=== PATIENT | female | born 1975 | race Caucasian/White ===

== ENCOUNTER 2017-02-13 15:39 | Emergency (ER) | payer MEDICAID ==
--- NOTE | 2017-02-13 17:10 | ER Document Report ---
ED Medical Screen (RME) - General Stated Complaint: RIGHT FLANK PAIN Time seen by provider: 17:05 Mode of Arrival: Ambulatory Information source: Patient Notes: [age]-year-old female has a dull headache that starts in the right posterior occiput for 3 days. Earlier today she developed right flank pain that radiated to her right upper quadrant and she also had episode of confusion, she picked up her toothbrush and didn't know what to put on it. That symptom has resolved and there is no weakness. No chest pain or shortness of breath. I have greeted and performed a rapid initial assessment of this patient. A comprehensive ED assessment, evaluation of the patient, analysis of test results , and completion of the medical decision making process will be conducted by additional ED providers. TRAVEL OUTSIDE OF THE U[place]S. IN LAST 30 DAYS: No - Related Data Allergies/Adverse Reactions: No Known Allergies Allergy (Verified 02/13/17 17:04) Past Medical History - Past Medical History Cardiac Medical History: Reports: Hx Hypercholesterolemia Neurological Medical History: Denies: Hx Seizures Psychiatric Medical History: Reports: Hx Anxiety, Hx Depression Past Surgical History: Reports: Hx Genitourinary Surgery - D&C x2, Hx Oral Surgery - bone grafts and extractions, Hx Tubal Ligation, Hx Umbilical Hernia. Denies: Hx Pacemaker - Immunizations Immunizations up to date: Yes Hx Diphtheria, Pertussis, Tetanus Vaccination: Yes Physical Exam - Vital signs Vitals: Temp Pulse Resp BP Pulse Ox 98.5 F 101 H 16 137/93 H 100 02/13/17 15:45 02/13/17 15:45 02/13/17 15:45 02/13/17 15:45 02/13/17 15:45 Course - Vital Signs Vital signs: Temp Pulse Resp BP Pulse Ox 98.5 F 101 H 16 137/93 H 100 02/13/17 15:45 02/13/17 15:45 02/13/17 15:45 02/13/17 15:45 02/13/17 15:45
[2017-02-13 17:37] LABS: ABSOLUTE BASOPHILS # (AUTO) 0.1 10^3/uL (0.0-0.2); ABSOLUTE EOSINOPHILS # (AUTO) 0.4 10^3/uL (0.0-0.6); ABSOLUTE LYMPHOCYTES (AUTO) 2.6 10^3/uL (0.5-4.7); ABSOLUTE MONOCYTES (AUTO) 0.7 10^3/uL (0.1-1.4); ABSOLUTE NEUT (AUTO) 6.7 10^3/uL (1.7-8.2); BASOPHILS % (AUTO) 0.5 % (0-2); EOSINOPHILS % (AUTO) 4.3 % (0-6); HEMOGLOBIN 15.2 g/dL (12.0-15.5); HGB HCT DIFFERENCE 1.6; LYMPHOCYTES % (AUTO) 24.5 % (13-45); MEAN CORPUSCULAR HEMOGLOBIN 32.2 pg (27.0-33.4); MEAN CORPUSCULAR HGB CONC 34.6 g/dL (32.0-36.0); MEAN CORPUSCULAR VOLUME 93 fl (80-97); MONOCYTES % (AUTO) 6.7 % (3-13); RED BLOOD COUNT 4.71 10^6/uL (3.72-5.28); RED CELL DISTRIBUTION WIDTH 12.8 % (11.5-14.0); WHITE BLOOD COUNT 10.4 10^3/uL (4.0-10.5)
[2017-02-13 17:43] LABS: APPEARANCE,URINE SLIGHTLY-CLOUDY; BILIRUBIN,URINE NEGATIVE (NEGATIVE); GLUCOSE, URINE NEGATIVE (NEGATIVE); KETONES,URINE NEGATIVE (NEGATIVE); LEUKOCYTE ESTERASE,URINE MODERATE (NEGATIVE); NITRITE,URINE NEGATIVE (NEGATIVE); PROTEIN,URINE NEGATIVE (NEGATIVE); URINE SPECIFIC GRAVITY 1.006; UROBILINOGEN,URINE NEGATIVE mg/dL (<2.0)
[2017-02-13 17:57] LABS: ALANINE AMINOTRANSFERASE 31 U/L (9-52); ALBUMIN 4.6 g/dL (3.5-5.0); ALKALINE PHOSPHATASE 90 U/L (38-126); ANION GAP 13 (5-19); ASPARTATE AMINO TRANSFERASE 21 U/L (14-36); BILIRUBIN,DIRECT 0.3 mg/dL (0.0-0.4); BILIRUBIN,TOTAL 0.6 mg/dL (0.2-1.3); BLOOD UREA NITROGEN 8 mg/dL (7-20); CALCIUM 10.1 mg/dL (8.4-10.2); CARBON DIOXIDE 24 mmol/L (22-30); CHLORIDE 105 mmol/L (98-107); CREATININE RESULT 0.83 mg/dL (0.52-1.25); GLUCOSE 92 mg/dL (75-110); POTASSIUM 4.6 mmol/L (3.6-5.0); SODIUM 142.2 mmol/L (137-145); TOTAL PROTEIN 7.8 g/dL (6.3-8.2)
[2017-02-13] MEDS ORDERED: CEPHALEXIN 500 MG CAPSULE PO ONE (18:49)
[2017-02-13] MEDS ORDERED: KETOROLAC TROMETHAMINE 60 MG/2 ML SDV IM ONE (18:50)
--- NOTE | 2017-02-13 18:50 | ER Document Report ---
ED GI/ - General Mode of Arrival: Ambulatory Information source: Patient TRAVEL OUTSIDE OF THE U.S. IN LAST 30 DAYS: No - HPI Patient complains to provider of: Flank pain Associated symptoms: Other - See above <LESLEY MAURICIO - Last Filed: 02/14/17 00:35> <JOSH ARBOLEDA - Last Filed: 02/14/17 02:50> - General Chief Complaint: Flank Pain Stated Complaint: RIGHT FLANK PAIN Notes: Patient is a 41 year old female who presents to the emergency department complaining of right sided flank pain onset last night. Patient reports the pain radiates into her lower right abdomen and has been constant. Patient denies dysuria, lightheadedness, nausea, fever, and the pain being exacerbated by movement. Patient also complains of a period of confusion this afternoon when she couldn't complete her normal daily routine, this has since resolved. Patient states that she has chronic diarrhea for the past 7 years and was only just recently prescribed medication for it. Patient currently takes a muscle relaxant for post knee surgery but states that she has not been taking it regularly. PCP: PHAN (LESLEY MAURICIO) - Related Data Allergies/Adverse Reactions: No Known Allergies Allergy (Verified 02/13/17 17:04) Past Medical History - General Information source: Patient - Social History Smoking Status: Current Every Day Smoker Chew tobacco use (# tins/day): No Frequency of alcohol use: None Drug Abuse: None Family History: Reviewed & Not Pertinent, Malignancy - Breast cancer Patient has suicidal ideation: No Patient has homicidal ideation: No - Past Medical History Cardiac Medical History: Reports: Hx Hypercholesterolemia Psychiatric Medical History: Reports: Hx Anxiety, Hx Depression Past Surgical History: Reports: Hx Genitourinary Surgery - D&C x2, Hx Oral Surgery - bone grafts and extractions, Hx Orthopedic Surgery - Knee, Hx Tubal Ligation, Hx Umbilical Hernia - Immunizations Immunizations up to date: Yes Hx Diphtheria, Pertussis, Tetanus Vaccination: Yes <LESLEY MAURICIO - Last Filed: 02/14/17 00:35> Review of Systems - Review of Systems Constitutional: denies: Fever EENT: No symptoms reported Cardiovascular: denies: Lightheaded Respiratory: No symptoms reported Gastrointestinal: See HPI, Abdominal pain. denies: Nausea Genitourinary: See HPI, Flank pain. denies: Dysuria Female Genitourinary: No symptoms reported Musculoskeletal: No symptoms reported Skin: No symptoms reported Hematologic/Lymphatic: No symptoms reported Neurological/Psychological: No symptoms reported -: Yes All other systems reviewed and negative <LESLEY MAURICIO - Last Filed: 02/14/17 00:35> Physical Exam - Vital signs Interpretation: Normal - General General appearance: Appears well, Alert - HEENT Head: Normocephalic, Atraumatic - Respiratory Respiratory status: No respiratory distress Chest status: Nontender Breath sounds: Normal Chest palpation: Normal - Cardiovascular Rhythm: Regular Heart sounds: Normal auscultation Murmur: No - Back Back: Other - Right flank tender to palpation - Extremities General upper extremity: Normal inspection, Normal ROM, Normal strength General lower extremity: Normal inspection, Normal ROM, Normal strength, Normal weight bearing - Neurological Neuro grossly intact: Yes Cognition: Normal Orientation: AAOx4 [place] Coma Scale Eye Opening: Spontaneous [place] Coma Scale Verbal: Oriented [place] Coma Scale Motor: Obeys Commands [place] Coma Scale Total: 15 Speech: Normal Motor strength normal: LUE, RUE, LLE, RLE - Psychological Associated symptoms: Normal affect, Normal mood - Skin Skin Temperature: Warm Skin Moisture: Dry Skin Color: Normal <LESLEY MAURICIO - Last Filed: 02/14/17 00:35> Course - Laboratory Result Diagrams: 02/13/17 17:15 02/13/17 17:15 <LESLEY MAURICIO - Last Filed: 02/14/17 00:35> - Laboratory Result Diagrams: 02/13/17 17:15 02/13/17 17:15 <JOSH ARBOLEDA - Last Filed: 02/14/17 02:50> - Re-evaluation Re-evalutation: 02/13 Patient with flank pain. No evidence for stone. Pain is at times worse with movement. Patient does have wbc's and urine. Will be treated for UTI. Patient also be given medication for pain and sleep as she has been on her times sleeping lately. She is to follow-up with her doctor to [place]. Return if any worsening or concerning symptoms. Urine culture sent. Understands and agrees with plan. Able to take by mouth. Stable for discharge. (JOSH ARBOLEDA) - Vital Signs Vital signs: Temp Pulse Resp BP Pulse Ox 98.1 F 91 16 119/85 99 02/13/17 19:19 02/13/17 19:19 02/13/17 19:19 02/13/17 19:19 02/13/17 19:19 - Laboratory Laboratory results interpreted by me: 02/13/17 17:20 Urine Blood SMALL H Ur Leukocyte Esterase MODERATE H Discharge <LESLEY MAURICIO - Last Filed: 02/14/17 00:35> <JOSH ARBOLEDA - Last Filed: 02/14/17 02:50> - Discharge Clinical Impression: Pyelonephritis UTI (urinary tract infection) Qualifiers: Urinary tract infection type: site unspecified Hematuria presence: with hematuria Qualified Code(s): N39.0 - Urinary tract infection, site not specified ; R31.9 - Hematuria, unspecified Condition: Stable Disposition: HOME, SELF-CARE Instructions: Urinary Tract Infection ([facility]), Pyelonephritis ([facility]) Prescriptions: Diazepam [Valium 2 mg Tablet] 1 - 2 mg PO QHS #10 tablet Cephalexin Monohydrate [Keflex 500 mg Capsule] 500 mg PO QID #40 capsule Forms: Elevated Blood Pressure, Return to Work Scribe Attestation: 02/14/17 02:50 I personally performed the services described in the documentation, reviewed and edited the documentation which was dictated to the scribe in my presence, and it accurately records my words and actions. (JOSH ARBOLEDA) Scribe Documentation - Scribe Written by Scribe:: aakash Bishop, 02/13/172027 acting as scribe for :: Dayanna <LESLEY MAURICIO - Last Filed: 02/14/17 00:35>
[2017-02-13 19:22] VITALS: BP 119/85
== END 2017-02-13 19:30 | disposition home or self-care (01) ==
LOC: ER 15:39
DX: N12 Tubulo-interstitial nephritis, not specified as acute or chronic (principal); R31.9 Hematuria, unspecified; R10.9 Unspecified abdominal pain; R41.0 Disorientation, unspecified; R19.7 Diarrhea, unspecified; F17.200 Nicotine dependence, unspecified, uncomplicated; Z98.890 Other specified postprocedural states
CPT/HCPCS: 94640; 96372; 36415; 87086; 84703; 85025; 87088; 80053; 81001; 87186; 70450; J1885

== ENCOUNTER 2017-08-25 16:17 | Emergency (ER) | payer MEDICAID ==
[2017-08-25 16:25] VITALS: BP 163/90
[2017-08-25 17:27] LABS: APPEARANCE,URINE CLEAR; BILIRUBIN,URINE NEGATIVE (NEGATIVE); GLUCOSE, URINE NEGATIVE (NEGATIVE); KETONES,URINE NEGATIVE (NEGATIVE); LEUKOCYTE ESTERASE,URINE NEGATIVE (NEGATIVE); NITRITE,URINE NEGATIVE (NEGATIVE); PROTEIN,URINE NEGATIVE (NEGATIVE); URINE SPECIFIC GRAVITY 1.018; UROBILINOGEN,URINE NEGATIVE mg/dL (<2.0)
--- NOTE | 2017-08-25 17:36 | RADIOLOGY REPORT (SQ) ---
EXAM DESCRIPTION: CT LTD RENAL STONE PROTOCOL ON COMPLETED DATE/TIME: 08/25/2017 5:07 pm REASON FOR STUDY: left flank pain COMPARISON: 08/03/2015 TECHNIQUE: CT scan of the abdomen and pelvis performed without intravenous or oral contrast. Images reviewed with lung, soft tissue, and bone windows. Reconstructed coronal and sagittal MPR images revi ewed. All images stored on PACS. All CT scanners at this facility use dose modulation, iterative reconstruction, and/or weight based d osing when appropriate to reduce radiation dose to as low as reasonably achievable (ALARA). [facility]: Dose Right [facility]: CareDose [facility]: Dose Right [facility]: Teradose 4D [facility]: Smart WeTOWNS RADIATION DOSE: Up-to-date CT equipment and radiation dose reduction techniques were employed. CTDIv ol: 8.2 mGy. DLP: 413 mGy-cm.mGy. LIMITATIONS: None. FINDINGS: LOWER CHEST: No significant findings. No nodules or infiltrates. NON-CONTRASTED LIVER, SPLEEN, ADRENALS: Evaluation limited by lack of IV contrast. No identified sign ificant masses. PANCREAS: No masses. No peripancreatic inflammatory changes. GALLBLADDER: No identified stones by CT criteria. No inflammatory changes to suggest cholecystitis. RIGHT KIDNEY AND URETER: No suspicious masses. Assessment limited by lack of IV contrast. No signif icant calcifications. No hydronephrosis or hydroureter. LEFT KIDNEY AND URETER: No suspicious masses. Assessment limited by lack of IV contrast. No signifi cant calcifications. No hydronephrosis or hydroureter. AORTA AND RETROPERITONEUM: No aneurysm. No retroperitoneal masses or adenopathy. BOWEL AND PERITONEAL CAVITY: No obvious masses or inflammatory changes. No free fluid. APPENDIX: Normal. PELVIS, BLADDER, AND ABDOMINAL WALL:Urinary bladder is normal. Uterus is normal for age. There may be a 2 cm right ovarian cyst. BONES: No significant findings. OTHER: No other significant finding. IMPRESSION: 1. There is no urinary pathology. 2. There appears to be a 2 cm right ovarian cyst. COMMENT: Quality ID # [id number]: Final reports with documentation of one or more dose reduction techniques (e.g., Automated exposure control, adjustment of the mA and/or kV according to patient size, use of iterative reconstruction technique) TECHNICAL DOCUMENTATION: JOB ID: [id number] All Rights Reserved
--- NOTE | 2017-08-25 18:22 | ER Document Report ---
ED General - General Chief Complaint: Flank Pain Stated Complaint: LEFT SIDE PAIN Time Seen by Provider: 08/25/17 16:45 Mode of Arrival: Ambulatory Information source: Patient Notes: This is a 41-year-old female with no prior medical problems who presents to the emergency room with 4 day history of left flank pain and back. Patient denies dysuria. Patient denies any fever, chills, nausea vomiting. Patient denies any abdominal pain per se. Patient denies any vaginal discharge. She does have a history of an umbilical hernia repair and a bilateral tubal ligation. She smokes 1-2 packs of cigarettes a day. She is currently on no medicines. [facility] is followed [facility] the [facility]. TRAVEL OUTSIDE OF THE [place] IN LAST 30 DAYS: No COUNTRY TRAVELED TO/FROM: [facility] Onset: Last week Onset/Duration: Gradual Quality of pain: Dull Severity: Moderate Pain Level: 2 Associated symptoms: denies: Chills, Fever, Shortness of breath Exacerbated by: Movement Relieved by: Denies Similar symptoms previously: Yes Recently seen / treated by doctor: No - Related Data Allergies/Adverse Reactions: No Known Allergies Allergy (Verified 08/25/17 16:22) Past Medical History - General Information source: Patient - Social History Smoking Status: Current Every Day Smoker Cigarette use (# per day): Yes - 1 pack per day Chew tobacco use (# tins/day): No Frequency of alcohol use: None Drug Abuse: None Lives with: Family Family History: Reviewed & Not Pertinent, Malignancy - Breast cancer Patient has suicidal ideation: No - Past Medical History Cardiac Medical History: Reports: Hx Hypercholesterolemia Neurological Medical History: Denies: Hx Seizures Renal/ Medical History: Denies: Hx Peritoneal Dialysis Psychiatric Medical History: Reports: Hx Anxiety, Hx Depression Past Surgical History: Reports: Hx Genitourinary Surgery - D&C x2, Hx Oral Surgery - bone grafts and extractions, Hx Orthopedic Surgery - Knee, Hx Tubal Ligation, Hx Umbilical Hernia. Denies: Hx Pacemaker - Immunizations Immunizations up to date: Yes Hx Diphtheria, Pertussis, Tetanus Vaccination: Yes Review of Systems - Review of Systems Constitutional: denies: Chills, Fever EENT: No symptoms reported Cardiovascular: No symptoms reported Respiratory: No symptoms reported Gastrointestinal: No symptoms reported Genitourinary: No symptoms reported Female Genitourinary: No symptoms reported Musculoskeletal: See HPI Skin: No symptoms reported Hematologic/Lymphatic: No symptoms reported Neurological/Psychological: No symptoms reported Physical Exam - Vital signs Vitals: Temp Pulse Resp BP Pulse Ox 98.7 F 91 16 163/90 H 98 08/25/17 16:23 08/25/17 16:23 08/25/17 16:23 08/25/17 16:23 08/25/17 16:23 Notes: Physical exam: GENERAL: 41-year-old female, alert and oriented 3, no acute distress. Patient is afebrile. She appears good. HEAD: Atraumatic, normocephalic. EYES: Pupils equal round and reactive to light, extraocular movements intact, sclera anicteric, conjunctiva are normal. ENT: TMs normal, nares patent, oropharynx clear without exudates. Moist mucous membranes. NECK: Normal range of motion, supple without obvious mass or JVD. LUNGS: Breath sounds clear to auscultation bilaterally and equal. No wheezes rales or rhonchi. HEART: Regular rate and rhythm without murmurs, rubs or gallops. Back: Patient does have right paraspinal back pain. There is mild CVA tenderness. There is no swelling or skin changes. ABDOMEN: Soft, normoactive bowel sounds. No tenderness to palpation. No guarding, no rebound. No masses appreciated. EXTREMITIES: Normal range of motion, no pitting or edema. No clubbing or cyanosis. NEUROLOGICAL: Cranial nerves II through XII grossly intact. Normal speech, moving all extremities. PSYCH: Normal mood, normal affect. SKIN: Warm, Dry, normal turgor, no rashes or lesions noted. Course - Re-evaluation Re-evalutation: 08/25/17 18:24 Note: The patient's been ambulating around the ER and looks fine. Her vital signs are stable. Her blood pressure was rechecked and it was 130/85. I have advised her to follow-up with her primary care doctor as far as her blood pressure. I have given her a copy of the CT report and urine analysis to [facility]. I have told her to call and schedule next available appointment. - Vital Signs Vital signs: Temp Pulse Resp BP Pulse Ox 98.7 F 91 16 163/90 H 98 08/25/17 16:23 08/25/17 16:23 08/25/17 16:23 08/25/17 16:23 08/25/17 16:23 - Laboratory Laboratory results interpreted by me: 08/25/17 16:50 Urine Blood SMALL H - Diagnostic Test Radiology reviewed: Image reviewed, Reports reviewed - CT of the abdomen shows no acute intra-abdominal process Discharge - Discharge Clinical Impression: Back pain, Pre-hypertension Condition: Stable Disposition: HOME, SELF-CARE Additional Instructions: The CT of the abdomen showed normal kidneys without any evidence of kidney stones or kidney blockage. Urine test showed no obvious infection. We did send a urine culture which will take 2 days to come back. Thank you for choosing [facility] for your care. The examination and treatment you have received in the Emergency Department today has been rendered on an emergency basis only and is not intended to be a substitute for complete medical care. You should contact your follow-up physician as it is important that he or she examine you for any new or remaining problems. If given a copy of any lab tests or radiology reports, please bring them with you when you see your physician. If your problem worsens or new symptoms appear and you are unable to arrange prompt follow-up care, return to the Emergency Department. Specific signs to look out for: Worsening pain, fever, or any concerns or getting worse. Any other instructions: I would like you to follow-up with your doctor at the [facility]: Bring a copy of today' s urine test and CT report with you. Call the clinic tomorrow for the next available appointment. Make sure you tell them you your blood pressure was a little elevated in the ER today and he should have a repeat check. Take nausea medicine as needed. Take ibuprofen for pain. Take oxycodone for pain unrelieved by the ibuprofen. You can also take some Tylenol every 4-6 hours. The pain medicine you're taking prescribed as a narcotic. There are several important things you should know about this medicine: 1. Taking narcotics for too long can lead to physical and mental dependence. Take this medicine only if really needed and in the lowest quantity to achieve pain relief. 2. Do not drink alcohol while on this medicine. Alcohol interacts with narcotics and the combination can be dangerous. 3. Do not drive or operate machinery while on this medicine. 4. Narcotics do cause constipation, so drink plenty of fluids and daily stool softeners. Prescriptions: Oxycodone HCl 5 mg PO Q6HP PRN #20 tablet PRN Reason: Forms: Elevated Blood Pressure
== END 2017-08-25 18:58 | disposition home or self-care (01) ==
LOC: ER 16:17
DX: R10.9 Unspecified abdominal pain (principal); M54.9 Dorsalgia, unspecified; R03.0 Elevated blood-pressure reading, without diagnosis of hypertension; F17.210 Nicotine dependence, cigarettes, uncomplicated; E78.00 Pure hypercholesterolemia, unspecified; Z98.51 Tubal ligation status
CPT/HCPCS: 76380; 81001; 99284

== ENCOUNTER 2017-12-22 05:02 | Emergency (ER) | payer MEDICAID ==
--- NOTE | 2017-12-22 06:37 | ER Document Report ---
ED General - General Chief Complaint: Toothache Stated Complaint: TOOTHACHE Time Seen by Provider: 12/22/17 06:33 Notes: 42-year-old female presents with 4 days of left lower tooth pain and swelling. She cannot chew on that side either. She denies fever but has been having chills. History of dental infections. She is currently taking clindamycin which she had left over from a prior dental infection. She has not visited the dentist. Denies odynophagia neck pain or difficulty moving her neck. TRAVEL OUTSIDE OF THE [place] IN LAST 30 DAYS: No COUNTRY TRAVELED TO/FROM: [place] - Related Data Allergies/Adverse Reactions: No Known Allergies Allergy (Verified 12/22/17 05:03) Past Medical History - Social History Smoking Status: Smoker,Current Status Unk Family History: Reviewed & Not Pertinent, Malignancy - Breast cancer - Past Medical History Cardiac Medical History: Reports: Hx Hypercholesterolemia Neurological Medical History: Denies: Hx Seizures Renal/ Medical History: Denies: Hx Peritoneal Dialysis Psychiatric Medical History: Reports: Hx Anxiety, Hx Depression Past Surgical History: Reports: Hx Genitourinary Surgery - D&C x2, Hx Oral Surgery - bone grafts and extractions, Hx Orthopedic Surgery - Knee, Hx Tubal Ligation, Hx Umbilical Hernia. Denies: Hx Pacemaker - Immunizations Immunizations up to date: Yes Hx Diphtheria, Pertussis, Tetanus Vaccination: Yes Review of Systems - Review of Systems Notes: REVIEW OF SYSTEMS GEN: Denies fever, chills, weight loss ENT: Mouth pain. Denies sore throat, nasal discharge, ear pain EYES: Denies blurry vision, eye pain, discharge CV: Denies chest pain, palpitations, edema RESP: Denies cough, shortness of breath, wheezing GI: Denies abdominal pain, nausea, vomiting, diarrhea MSK: Denies joint pain/swelling, edema, SKIN: Denies rash, skin lesions LYMPH: Denies swollen glands/lymph nodes NEURO: Denies headache, focal weakness or numbness, dizziness PSYCH: Denies depression, suicidal or homicidal ideation PHYSICAL EXAMINATION General: No acute distress, well-nourished Head: Atraumatic, normocephalic ENT: Poor dentition. Absent left lower second premolar. Tenderness to the left first molar on the mandible. No mandibular tenderness. Very mild swelling but no drainable abscess intraorally. Floor the mouth soft. No trismus., oropharynx moist, no exudates or tonsillar enlargement Eyes: Conjunctiva normal, pupils equal, lids normal Neck: No JVD, supple, no guarding CVS: Normal rate, regular rhythm, no murmurs Resp: No resp distress, equal and normal breath sounds bilaterally GI: Nondistended, soft, no tenderness to palpation, no rebound or guarding Ext: No deformities, no edema, normal range of motion in upper and lower ext Back: No CVA or midline TTP Skin: No rash, warm Lymphatic: No lymphadeopathy noted Neuro: Awake, alert. Face symmetric. GCS 15. Physical Exam - Vital signs Vitals: Temp Pulse Resp BP Pulse Ox 99.0 F 90 16 135/92 H 97 12/22/17 05:06 12/22/17 05:06 12/22/17 05:06 12/22/17 05:06 12/22/17 05:06 Course - Re-evaluation Re-evalutation: 12/22/17 06:37 Early dental infection without drainable abscess, no signs of deep space infection such as Yehuda or neck infection. We will change to penicillin add Page and stressed that the patient needs this tooth pulled. Given return precautions. I have discussed with the patient there likely diagnosis, aftercare plan, follow -up plans and my usual and customary return precautions. They verbalized understanding of this. - Vital Signs Vital signs: Temp Pulse Resp BP Pulse Ox 99.0 F 90 16 135/92 H 97 12/22/17 05:06 12/22/17 05:06 12/22/17 05:06 12/22/17 05:06 12/22/17 05:06 Discharge - Discharge Clinical Impression: Dental infection Condition: Good Disposition: HOME, SELF-CARE Instructions: [facility], Oral Narcotic Medication ([facility]), Penicillin V K ([facility]), Toothache ([facility]) Prescriptions: Hydrocodone/Acetaminophen [Page 5-325 mg Tablet] 1 tab PO Q6HP PRN #13 tablet PRN Reason: Penicillin V Potassium [Penicillin Vk 500 mg Tablet] 500 mg PO BID #20 tablet Referrals: [facility] [Provider Group] - Follow up as needed
[2017-12-22 06:45] VITALS: BP 138/96
== END 2017-12-22 06:46 | disposition home or self-care (01) ==
LOC: ER 05:02
DX: K04.7 Periapical abscess without sinus (principal); K08.89 Other specified disorders of teeth and supporting structures; R68.83 Chills (without fever)
CPT/HCPCS: 99282

== ENCOUNTER 2018-03-31 09:34 | Day surgery (SDC) | payer MEDICAID ==
[~2018-03-31 09:34] MED LIST: DIPHENHYDRAMINE HCL 50 MG/ML VIAL ONE; EPINEPHRINE INJ 1 MG/10 ML DISP.SYRIN ONE; FLUMAZENIL INJ 0.5 MG/5 ML VIAL ONE; GLUCAGON,HUMAN RECOMB 1 MG INJ ONE; NALOXONE HCL INJ/PF 0.4 MG/1 ML SDV ONE; ONDANSETRON HCL INJ/PF 4 MG/2 ML SDV ONE
[2018-03-31] MEDS: MIDAZOLAM 2 MG/2 ML INJ ONE ×2 (09:52→09:58)
[2018-03-31] MEDS: FENTANYL CITRATE INJ/PF 100 MCG/2 ML AMPUL ONE ×2 (09:54→09:56)
--- NOTE | 2018-03-31 10:13 | Operative Report ---
Operative Report DATE OF SURGERY: 03/31/18 Operative Report: The risks benefits and alternatives of the procedure explained to the patient in detail and informed consent is obtained.A GIF Olympus video scope was inserted into the patient's mouth and hypopharynx, the esophagus is identified intubated and insufflated, the scope was then advanced through the esophagus stomach and duodenum, retroflexion maneuver is done, the esophagus stomach and first and second portions of the duodenum examined PREOPERATIVE DIAGNOSIS: Gluten intolerance,, possible celiac disease POSTOPERATIVE DIAGNOSIS: Duodenitis status post biopsy rule out celiac disease. Gastritis status post biopsy rule out Helicobacter pylori OPERATION: EGD with biopsy SURGEON: LAITH LYNNE ANESTHESIA: Moderate Sedation - 4 mg of Versed, 100 mcg of fentanyl. Conscious sedation monitoring time 30 minutes. TISSUE REMOVED OR ALTERED: As noted above. COMPLICATIONS: None. ESTIMATED BLOOD LOSS: None. INTRAOPERATIVE FINDINGS: As noted above. PROCEDURE: Patient tolerated the procedure well. No immediate postprocedure complications are noted. Patient discharged in good condition. Discharge date 03/31/2018. Discharge diet: Regular. Discharge activity: Regular. 2-3 week follow-up to discuss findings. Patient is instructed to call the office or proceed to the emergency room should there be any further problems or questions. We will wait on pathology.
[2018-03-31 11:06] VITALS: BP 109/77
== END 2018-03-31 11:10 | disposition home or self-care (01) ==
LOC: END 09:34
PROVIDERS: ATTEND Internal Medicine Gastroenterology
DX: K29.80 Duodenitis without bleeding (principal); K29.50 Unspecified chronic gastritis without bleeding; K90.41 Non-celiac gluten sensitivity; F17.210 Nicotine dependence, cigarettes, uncomplicated; E78.5 Hyperlipidemia, unspecified; R73.03 Prediabetes; Z79.899 Other long term (current) drug therapy; Z79.84 Long term (current) use of oral hypoglycemic drugs
CPT/HCPCS: 43239; 88305 ×2; J2250; J3010; J0171; J1200; J1610; J2310; J2405; J3490

== ENCOUNTER 2019-09-02 22:25 | Emergency (ER) | payer MEDICAID ==
--- NOTE | 2019-09-02 22:58 | ER Document Report ---
ED Medical Screen (RME) - General Chief Complaint: Rash Stated Complaint: RASH/VAGINA AND BUTTOCKS Time Seen by Provider: 09/02/19 22:51 Mode of Arrival: Ambulatory Information source: Patient Notes: This 43-year-old female presents emergency department with vaginal bumps that started yesterday. Reports her vaginal area feels swollen and the bumps go up to her buttocks. Also reports when urine touches her skin it martinez. Denies history of STD. Denies history of herpes. Reports she is sexually active with one partner they do not use condoms. Denies fever vomiting diarrhea. I have greeted and performed a rapid initial assessment of this patient. A comprehensive ED assessment and evaluation of the patient, analysis of test results and completion of the medical decision making process will be conducted by additional ED providers. Dictation of this chart was performed using voice recognition software; therefore, there may be some unintended grammatical errors. TRAVEL OUTSIDE OF THE [place] IN LAST 30 DAYS: No COUNTRY TRAVELED TO/FROM: [place] - Related Data Allergies/Adverse Reactions: No Known Allergies Allergy (Verified 03/31/18 09:39) Past Medical History - Past Medical History Cardiac Medical History: Reports: Hx Coronary Artery Disease, Hx Hypercholesterolemia Denies: Hx Heart Attack, Hx Hypertension Pulmonary Medical History: Denies: Hx Asthma, Hx Bronchitis, Hx COPD, Hx Pneumonia Neurological Medical History: Denies: Hx Cerebrovascular Accident, Hx Seizures Renal/ Medical History: Denies: Hx Peritoneal Dialysis Musculoskeltal Medical History: Reports Hx Arthritis Psychiatric Medical History: Reports: Hx Anxiety, Hx Depression Past Surgical History: Reports: Hx Genitourinary Surgery - D&C x2, Hx Oral Surgery - bone grafts and extractions, Hx Orthopedic Surgery - Knee, Hx Tubal Ligation, Hx Umbilical Hernia. Denies: Hx Hysterectomy, Hx Pacemaker - Immunizations Immunizations up to date: Yes Hx Diphtheria, Pertussis, Tetanus Vaccination: Yes Physical Exam - Vital signs Vitals: Temp Pulse Resp BP Pulse Ox 98.6 F 110 H 18 135/87 H 99 09/02/19 22:45 09/02/19 22:45 09/02/19 22:45 09/02/19 22:45 09/02/19 22:45 Course - Vital Signs Vital signs: Temp Pulse Resp BP Pulse Ox 98.6 F 110 H 18 135/87 H 99 09/02/19 22:45 09/02/19 22:45 09/02/19 22:45 09/02/19 22:45 09/02/19 22:45
[2019-09-02 23:51] LABS: APPEARANCE,URINE SLIGHTLY-CLOUDY; BILIRUBIN,URINE NEGATIVE (NEGATIVE); COLOR,URINE YELLOW; GLUCOSE, URINE NEGATIVE (NEGATIVE); KETONES,URINE NEGATIVE (NEGATIVE); LEUKOCYTE ESTERASE,URINE MODERATE (NEGATIVE); NITRITE,URINE NEGATIVE (NEGATIVE); PROTEIN,URINE NEGATIVE (NEGATIVE); UROBILINOGEN,URINE NEGATIVE mg/dL (<2.0)
[2019-09-03 01:18] LABS: CHLAM PCR NOT DETECTED (NOT DETECT)
--- NOTE | 2019-09-03 01:38 | ER Document Report ---
ED GI/ - General Chief Complaint: Vaginal Pain Stated Complaint: RASH/VAGINA AND BUTTOCKS Time Seen by Provider: 09/02/19 22:51 Primary Care Provider: [facility] [Provider Group] - Follow up as needed Mode of Arrival: Ambulatory Notes: Patient is a 43 year old female that comes emergency department for chief complaint of 2 days of worsening discomfort in the pelvic/vaginal area, she states she feels like her genitals are swollen, she also has pain extending up the perineum and towards the rectum. She denies any obvious bleeding or discharge. She denies nausea vomiting, fever or chills, or history of the same. She is sexually active with her fianc. Past medical history of hyperlipidemia. TRAVEL OUTSIDE OF THE [place] IN LAST 30 DAYS: No COUNTRY TRAVELED TO/FROM: [place] - Related Data Allergies/Adverse Reactions: No Known Allergies Allergy (Verified 03/31/18 09:39) Past Medical History - General Information source: Patient - Social History Smoking Status: Current Every Day Smoker Frequency of alcohol use: None Drug Abuse: None Lives with: Family Family History: Reviewed & Not Pertinent, Malignancy - Breast cancer Patient has suicidal ideation: No Patient has homicidal ideation: No - Past Medical History Cardiac Medical History: Reports: Hx Coronary Artery Disease, Hx Hypercholesterolemia Denies: Hx Heart Attack, Hx Hypertension Pulmonary Medical History: Denies: Hx Asthma, Hx Bronchitis, Hx COPD, Hx Pneumonia Neurological Medical History: Denies: Hx Cerebrovascular Accident, Hx Seizures Renal/ Medical History: Denies: Hx Peritoneal Dialysis Musculoskeletal Medical History: Reports Hx Arthritis Psychiatric Medical History: Reports: Hx Anxiety, Hx Depression Past Surgical History: Reports: Hx Genitourinary Surgery - D&C x2, Hx Oral Surgery - bone grafts and extractions, Hx Orthopedic Surgery - Knee, Hx Tubal Ligation, Hx Umbilical Hernia. Denies: Hx Hysterectomy, Hx Pacemaker - Immunizations Immunizations up to date: Yes Hx Diphtheria, Pertussis, Tetanus Vaccination: Yes Review of Systems - Review of Systems Constitutional: No symptoms reported EENT: No symptoms reported Cardiovascular: No symptoms reported Respiratory: No symptoms reported Gastrointestinal: No symptoms reported Genitourinary: See HPI Female Genitourinary: See HPI Musculoskeletal: No symptoms reported Skin: No symptoms reported Hematologic/Lymphatic: No symptoms reported Neurological/Psychological: No symptoms reported Physical Exam - Vital signs Vitals: Temp Pulse Resp BP Pulse Ox 98.6 F 110 H 18 135/87 H 99 09/02/19 22:45 09/02/19 22:45 09/02/19 22:45 09/02/19 22:45 09/02/19 22:45 - Notes Notes: GENERAL: Alert, interacts well. No acute distress. HEAD: Normocephalic, atraumatic. EYES: Pupils equal, round, and reactive to light. Extraocular movements intact. ENT: Oral mucosa moist, tongue midline. Oropharynx unremarkable. Airway patent. NECK: Full range of motion. Supple. Trachea midline. LUNGS: Clear to auscultation bilaterally, no wheezes, rales, or rhonchi. No respiratory distress. HEART: Regular rate and rhythm. No murmur ABDOMEN: Soft, non-tender. Non-distended. Bowel sounds present in all 4 quadrants. GENITOURINARY: External exam shows 2 areas which are consistent with folliculitis infection, there is some erythema over the inferior aspect of the groin as well, there are no severely tender areas, no evidence of fluctuance or induration, no vesicles or blisters. There is discolored discharge and tenderness on pelvic exam as well. No bleeding. Unremarkable exam otherwise. Exam performed with Nilesh RN at bedside. EXTREMITIES: Moves all 4 extremities spontaneously. No edema, normal radial and dorsalis pedis pulses bilaterally. No cyanosis. BACK: no cervical, thoracic, lumbar midline tenderness. No saddle anesthesia, normal distal neurovascular exam. Moves all extremities in full range of motion. NEUROLOGICAL: Alert and oriented x3. Normal speech. Cranial nerves II through XII grossly intact. PSYCH: Normal affect, normal mood. SKIN: Warm, dry, normal turgor. No rashes or lesions noted. Course - Re-evaluation Re-evalutation: Evaluation appears to show some folliculitis with some surrounding cellulitis but no induration or fluctuance. In addition to this there is some discolored discharge vaginally with tenderness on exam. No bleeding. Negative for gonorrhea and chlamydia, negative trichomonas. 2+ white blood cells. No fever. No abdominal tenderness. Patient well-appearing otherwise. Starting on doxycycline, given Rocephin, discussed expectations, follow-up, return precautions. Patient states understanding and agreement. - Vital Signs Vital signs: Temp Pulse Resp BP Pulse Ox 98.4 F 88 16 128/93 H 99 09/03/19 03:22 09/03/19 03:22 09/03/19 03:22 09/03/19 03:22 09/03/19 03:22 - Laboratory Laboratory results interpreted by me: 09/02/19 23:25 Urine Blood MODERATE H Ur Leukocyte Esterase MODERATE H Discharge - Discharge Clinical Impression: Pain in genitalia, Rash Disposition: HOME, SELF-CARE Additional Instructions: Your evaluation is consistent with folliculitis, cellulitis, pelvic infection. Take doxycycline as prescribed to completion. Symptoms should resolve with time. Follow-up with primary care. Return if you worsen including f ever/chills, nausea/vomiting, abdominal pain, spreading rash, or any other concerning or worsening symptoms. Prescriptions: Doxycycline Hyclate 100 mg PO BID #14 capsule Forms: Return to Work Referrals: [facility] [Provider Group] - Follow up as needed
[2019-09-03] MEDS ORDERED: ONDANSETRON 4 MG TAB.RAPDIS PO ONE (02:11)
[2019-09-03] MEDS ORDERED: OXYCODONE-ACETAMINOPHEN 5-325 MG TABLET PO ONE (02:11)
[2019-09-03 02:19] LABS: T.VAGINALIS (WET MOUNT) NO TRICHOMONAS SEEN
[2019-09-03 02:20] LABS: EPITHELIALS (WET MOUNT) 3+ EPITHELIALS SEEN; RBCS (WET MOUNT) FEW RBCS SEEN; WBCS (WET MOUNT) 2+ WBCS SEEN; YEAST (WET MOUNT) NO YEAST SEEN
[2019-09-03 03:23] VITALS: BP 128/93
[2019-09-03] MEDS ORDERED: LIDOCAINE 1% INJ-PF (10 MG/ML) 30 ML SDV INJ ONE (03:23)
[2019-09-03] MEDS ORDERED: DOXYCYCLINE HYCLATE 100 MG TABLET PO ONE (03:23)
[2019-09-03] MEDS ORDERED: CEFTRIAXONE INJ 250 MG VIAL IM ONE (03:23)
[2019-09-03] MEDS ORDERED: HYDROCODONE/ACETAMINOPHEN 5-325 MG (6 TAB/ER DISP) PO PRN (03:24)
== END 2019-09-03 03:32 | disposition home or self-care (01) ==
LOC: ER 22:25
DX: R10.2 Pelvic and perineal pain (principal); R21 Rash and other nonspecific skin eruption; N89.8 Other specified noninflammatory disorders of vagina; F17.200 Nicotine dependence, unspecified, uncomplicated; I25.10 Atherosclerotic heart disease of native coronary artery without angina pectoris
CPT/HCPCS: 99283; 96372; 87210; 81025; 81001; 87491; 87591; J3490 ×2; S0119; J0696

== ENCOUNTER 2019-10-15 10:38 | Emergency (ER) | payer MEDICAID ==
--- NOTE | 2019-10-15 10:47 | ER Document Report ---
ED Medical Screen (RME) - General Chief Complaint: Numbness Stated Complaint: FOOT NUMBNESS Time Seen by Provider: 10/15/19 10:43 Primary Care Provider: JOHANNE OLIVO MD [Primary Care Provider] - Follow up as needed TRAVEL OUTSIDE OF THE [place] IN LAST 30 DAYS: No COUNTRY TRAVELED TO/FROM: [facility] Notes: 10/15/19 10:43 Patient is a 43-year-old female with a history of IBS, PCOS (on metformin 4), headaches, high cholesterol who presents complaining of bilateral foot tingling/occasional numbness that radiates all way up to her hips bilaterally th at is been progressing over the past 3 weeks starting with her feet. Patient states that on occasion she also feels like she cannot feel herself when she is wiping after using the bathroom. Patient states that she has no pain anywhere including her back and no injury. No fever, chest pain, shortness of breath, muscle weakness, rash. I have treated and performed a rapid initial assessment of this patient. A comprehensive ED assessment and evaluation of the patient, analysis of test results and completion of medical decision making process will be conducted by additional ED providers. PHYSICAL EXAMINATION: GENERAL: Well-appearing, well-nourished and in no acute distress. A&Ox4. Answers questions appropriately. Back: FROM. Nontender. Ext's: no edema. pulses 2+ b/l to feet. Neuro: dec sensation b/l LE's. - Related Data Allergies/Adverse Reactions: No Known Allergies Allergy (Verified 03/31/18 09:39) Past Medical History - Past Medical History Cardiac Medical History: Reports: Hx Coronary Artery Disease, Hx Hypercholesterolemia Denies: Hx Heart Attack, Hx Hypertension Pulmonary Medical History: Denies: Hx Asthma, Hx Bronchitis, Hx COPD, Hx Pneumonia Neurological Medical History: Denies: Hx Cerebrovascular Accident, Hx Seizures Renal/ Medical History: Denies: Hx Peritoneal Dialysis Musculoskeltal Medical History: Reports Hx Arthritis Psychiatric Medical History: Reports: Hx Anxiety, Hx Depression Past Surgical History: Reports: Hx Genitourinary Surgery - D&C x2, Hx Oral Surgery - bone grafts and extractions, Hx Orthopedic Surgery - Knee, Hx Tubal Ligation, Hx Umbilical Hernia. Denies: Hx Hysterectomy, Hx Pacemaker - Immunizations Immunizations up to date: Yes Hx Diphtheria, Pertussis, Tetanus Vaccination: Yes Doctor's Discharge - Discharge Referrals: JOHANNE OLIVO MD [Primary Care Provider] - Follow up as needed
[2019-10-15 11:25] LABS: ABSOLUTE BASOPHILS # (AUTO) 0.1 10^3/uL (0.0-0.2); ABSOLUTE EOSINOPHILS # (AUTO) 0.5 10^3/uL (0.0-0.6); ABSOLUTE LYMPHOCYTES (AUTO) 2.5 10^3/uL (0.5-4.7); ABSOLUTE MONOCYTES (AUTO) 0.5 10^3/uL (0.1-1.4); HEMATOCRIT 42.3 % (36.0-47.0); HEMOGLOBIN 14.6 g/dL (12.0-15.5); LYMPHOCYTES % (AUTO) 32.6 % (13-45); MEAN CORPUSCULAR HEMOGLOBIN 32.7 pg (27.0-33.4); MEAN CORPUSCULAR HGB CONC 34.6 g/dL (32.0-36.0); MEAN CORPUSCULAR VOLUME 95 fl (80-97); MONOCYTES % (AUTO) 6.9 % (3-13); PLATELET COUNT 361 10^3/uL (150-450); RED BLOOD COUNT 4.46 10^6/uL (3.72-5.28); RED CELL DISTRIBUTION WIDTH 12.6 % (11.5-14.0); SEGMENTED NEUTROPHILS % (AUTO) 53.5 % (42-78); TOTAL CELLS COUNTED % (AUTO) 100 %; WHITE BLOOD COUNT 7.6 10^3/uL (4.0-10.5)
[2019-10-15 11:29] LABS: APPEARANCE,URINE CLEAR; BILIRUBIN,URINE NEGATIVE (NEGATIVE); COLOR,URINE YELLOW; GLUCOSE, URINE NEGATIVE (NEGATIVE); KETONES,URINE NEGATIVE (NEGATIVE); PROTEIN,URINE NEGATIVE (NEGATIVE); URINE SPECIFIC GRAVITY 1.009; UROBILINOGEN,URINE NEGATIVE mg/dL (<2.0)
[2019-10-15 11:59] LABS: ALBUMIN 4.4 g/dL (3.5-5.0); ALKALINE PHOSPHATASE 74 U/L (38-126); ANION GAP 7 (5-19); ASPARTATE AMINO TRANSFERASE 28 U/L (14-36); BILIRUBIN,DIRECT 0.2 mg/dL (0.0-0.4); BILIRUBIN,TOTAL 0.4 mg/dL (0.2-1.3); BLOOD UREA NITROGEN 10 mg/dL (7-20); CALCIUM 9.6 mg/dL (8.4-10.2); CARBON DIOXIDE 27 mmol/L (22-30); CHLORIDE 106 mmol/L (98-107); GLUCOSE 90 mg/dL (75-110); POTASSIUM 4.4 mmol/L (3.6-5.0); TOTAL PROTEIN 7.4 g/dL (6.3-8.2)
[2019-10-15 13:20] VITALS: BP 142/96
== END 2019-10-15 14:36 | disposition left against medical advice (07) ==
LOC: ER 10:38
DX: R20.0 Anesthesia of skin (principal); R20.2 Paresthesia of skin; I25.10 Atherosclerotic heart disease of native coronary artery without angina pectoris; E28.2 Polycystic ovarian syndrome; Z79.84 Long term (current) use of oral hypoglycemic drugs; Z53.20 Procedure and treatment not carried out because of patient's decision for unspecified reasons
CPT/HCPCS: 36415; 80053; 81001; 81025; 82962; 83735; 84443; 85025; 87086; 87088; 99281

== ENCOUNTER 2019-10-15 19:03 | Emergency (ER) | payer MEDICAID ==
--- NOTE | 2019-10-15 20:17 | ER Document Report ---
ED Medical Screen (RME) - General Chief Complaint: Numbness Stated Complaint: LOWER BACK PAIN Time Seen by Provider: 10/15/19 20:16 Primary Care Provider: TOD BERMAN MD [Primary Care Provider] - Follow up as needed TRAVEL OUTSIDE OF THE [place] IN LAST 30 DAYS: No COUNTRY TRAVELED TO/FROM: [facility] Notes: 10/15/19 20:16 Pt was triaged by myself earlier, but had to leave and has not returned. See previous note/labs. No changes since she left and returned. - Related Data Allergies/Adverse Reactions: No Known Allergies Allergy (Verified 10/15/19 10:45) Past Medical History - Past Medical History Cardiac Medical History: Reports: Hx Coronary Artery Disease, Hx Hypercholesterolemia Denies: Hx Heart Attack, Hx Hypertension Pulmonary Medical History: Denies: Hx Asthma, Hx Bronchitis, Hx COPD, Hx Pneumonia Neurological Medical History: Denies: Hx Cerebrovascular Accident, Hx Seizures Renal/ Medical History: Denies: Hx Peritoneal Dialysis Musculoskeltal Medical History: Reports Hx Arthritis Psychiatric Medical History: Reports: Hx Anxiety, Hx Depression Past Surgical History: Reports: Hx Genitourinary Surgery - D&C x2, Hx Oral Surgery - bone grafts and extractions, Hx Orthopedic Surgery - Knee, Hx Tubal Ligation, Hx Umbilical Hernia. Denies: Hx Hysterectomy, Hx Pacemaker - Immunizations Immunizations up to date: Yes Hx Diphtheria, Pertussis, Tetanus Vaccination: Yes Physical Exam - Vital signs Vitals: Temp Pulse Resp BP Pulse Ox 98.5 F 96 16 134/91 H 100 10/15/19 19:24 10/15/19 19:24 10/15/19 19:24 10/15/19 19:24 10/15/19 19:24 Course - Vital Signs Vital signs: Temp Pulse Resp BP Pulse Ox 98.5 F 96 16 134/91 H 100 10/15/19 19:24 10/15/19 19:24 10/15/19 19:24 10/15/19 19:24 10/15/19 19:24 Doctor's Discharge - Discharge Referrals: TOD BERMAN MD [Primary Care Provider] - Follow up as needed
--- NOTE | 2019-10-15 22:55 | ER Document Report ---
ED General - General Chief Complaint: Numbness Stated Complaint: LOWER BACK PAIN Time Seen by Provider: 10/15/19 20:16 Primary Care Provider: TOD BERMAN MD [Primary Care Provider] - Follow up as needed Notes: Patient is a 43-year-old female that comes emergency department for chief complaint of numbness from her feet up to her buttocks. She states that she has noticed this over the past 3 weeks, it is on both sides, she states it started being noticeable first in her feet and then has progressed up her legs towards her buttock and "private area". She is able to urinate without difficulty, she denies bowel incontinence, she denies injury, fever, IV drug abuse. She states she was seen by her primary care and sent over here. She denies any other complaints at this time. Past medical history of IBS, PCOS on metformin, hyperlipidemia. TRAVEL OUTSIDE OF THE [place] IN LAST 30 DAYS: No COUNTRY TRAVELED TO/FROM: [place] - Related Data Allergies/Adverse Reactions: No Known Allergies Allergy (Verified 10/15/19 10:45) Past Medical History - General Information source: Patient - Social History Smoking Status: Never Smoker Frequency of alcohol use: None Drug Abuse: None Lives with: Family Family History: Reviewed & Not Pertinent, Malignancy - Breast cancer Patient has suicidal ideation: No Patient has homicidal ideation: No - Past Medical History Cardiac Medical History: Reports: Hx Hypercholesterolemia Denies: Hx Heart Attack, Hx Hypertension Pulmonary Medical History: Denies: Hx Asthma, Hx Bronchitis, Hx COPD, Hx Pneumonia Neurological Medical History: Denies: Hx Cerebrovascular Accident, Hx Seizures Renal/ Medical History: Denies: Hx Peritoneal Dialysis Musculoskeletal Medical History: Reports Hx Arthritis Psychiatric Medical History: Reports: Hx Anxiety, Hx Depression Past Surgical History: Reports: Hx Genitourinary Surgery - D&C x2, Hx Oral Surgery - bone grafts and extractions, Hx Orthopedic Surgery - Knee, Hx Tubal Ligation, Hx Umbilical Hernia. Denies: Hx Hysterectomy, Hx Pacemaker - Immunizations Immunizations up to date: Yes Hx Diphtheria, Pertussis, Tetanus Vaccination: Yes Review of Systems - Review of Systems Constitutional: No symptoms reported EENT: No symptoms reported Cardiovascular: No symptoms reported Respiratory: No symptoms reported Gastrointestinal: No symptoms reported Genitourinary: No symptoms reported Female Genitourinary: No symptoms reported Musculoskeletal: See HPI Skin: No symptoms reported Hematologic/Lymphatic: No symptoms reported Neurological/Psychological: See HPI Physical Exam - Vital signs Vitals: Temp Pulse Resp BP Pulse Ox 98.5 F 96 16 134/91 H 100 10/15/19 19:24 10/15/19 19:24 10/15/19 19:24 10/15/19 19:24 10/15/19 19:24 - Notes Notes: GENERAL: Alert, interacts well. No acute distress. HEAD: Normocephalic, atraumatic. EYES: Pupils equal, round, and reactive to light. Extraocular movements intact. ENT: Oral mucosa moist, tongue midline. Oropharynx unremarkable. Airway patent. NECK: Full range of motion. Supple. Trachea midline. LUNGS: Clear to auscultation bilaterally, no wheezes, rales, or rhonchi. No respiratory distress. HEART: Regular rate and rhythm. No murmur ABDOMEN: Soft, non-tender. Non-distended. Bowel sounds present in all 4 quadrants. GENITOURINARY: Deferred EXTREMITIES: Moves all 4 extremities spontaneously. No edema, normal radial and dorsalis pedis pulses bilaterally. No cyanosis. BACK: no cervical, thoracic, lumbar midline tenderness. No saddle anesthesia, normal distal neurovascular exam. Moves all extremities in full range of motion. NEUROLOGICAL: Alert and oriented x3. Normal speech. Cranial nerves II through XII grossly intact. Patient has intact regular sensation but sensation to light touch is diminished bilaterally, very slightly more noticeable on the left. This is only distally at the feet and ankles, more proximally there is no deficit. 5 out of 5 strength in all extremities. Ambulates without difficulty or ataxia. Normal [id number] testing. PSYCH: Normal affect, normal mood. SKIN: Warm, dry, normal turgor. No rashes or lesions noted. Course - Re-evaluation Re-evalutation: Laboratory values from previous visit a short while ago were reviewed and unremarkable. Vital signs unremarkable. Patient is talkative and well- appearing on exam. She has no back pain, she has no radiculopathy, she has no motor deficit. She sits [place] style, gets up and ambulate without any difficulty. She denies history of IV drug abuse, she has no fever. Symptoms are bilateral, she has no neurological symptoms otherwise, presentation is not consistent with an acute stroke. Patient does have sensation deficit in the lower extremities, she can feel gener al sensation but she cannot feel light touch. This was confirmed on exam. This does appear worse in the distal extremities, I do not appreciate this specifically in the upper extremity's, I do not appreciate any saddle anesthesia. This seems normal. I discussed with Dr. Shah. Discussed patient's presentation. At this time no MRI or lumbar puncture is recommended, because there is no motor deficit recommendation is instead the patient follow closely with neurology referral for additional work-up and management. Patient is to have return precautions, I discussed this at length with her. Patient states appreciation and agreement. - Vital Signs Vital signs: Temp Pulse Resp BP Pulse Ox 98.0 F 67 17 142/98 H 98 10/15/19 23:30 10/15/19 23:30 10/15/19 23:30 10/15/19 23:30 10/15/19 23:30 Discharge - Discharge Clinical Impression: Numbness of both lower extremities Condition: Stable Disposition: HOME, SELF-CARE Additional Instructions: Your evaluation does indicate a sensation deficit but there is no motor deficit or concerning findings otherwise. You need to be evaluated by neurology for additional work-up and management. Either go through your primary care for neurology follow-up or call the referral listed below. Come back if you worsen including losing control of your bowel or bladder, fever, developing weakness, back pain, or any other concerning or worsening symptoms. [facility] Address: [address] [place] [address] Hours: Opens 8AM Mon Referrals: TOD BERMAN MD [Primary Care Provider] - Follow up as needed
[2019-10-15 23:40] VITALS: BP 142/98
== END 2019-10-15 23:28 | disposition home or self-care (01) ==
LOC: ER 19:03
DX: R20.0 Anesthesia of skin (principal); E28.2 Polycystic ovarian syndrome; Z79.84 Long term (current) use of oral hypoglycemic drugs
CPT/HCPCS: 99283